=== PATIENT | female | born 1970 | race Caucasian/White ===

== ENCOUNTER 2018-01-17 13:03 | Inpatient (IN) | payer BC ==
[2018-01-17 13:16] LABS: ADD MAN DIFF? NO
[2018-01-17 13:19] LABS: BASOPHIL # 0.1 10^3/ul (0.0-0.1); BASOPHILS % 0.5 % (0.0-2.0); EOSINOPHILS # 0.3 10^3/ul (0.0-0.5); EOSINOPHILS % 2.7 % (0.0-7.0); HEMATOCRIT 47.2 % (37.0-47.0); HEMOGLOBIN 15.9 g/dl (12.0-16.0); LYMPHOCYTES % 37.4 % (15.0-51.0); MEAN CORPUSCULAR HEMOGLOBIN 29.7 pg (29.0-33.0); MEAN CORPUSCULAR HGB CONC 33.7 g/dl (32.0-37.0); MEAN CORPUSCULAR VOLUME 88.2 fl (82.0-101.0); MEAN PLATELET VOLUME 10.3 fl (7.4-10.4); MONOCYTE # 0.4 10^3/ul (0.3-0.9); MONOCYTES % 3.8 % (0.0-11.0); NEUTROPHIL # 5.9 10^3/ul (1.6-7.5); NEUTROPHILS % 55.3 % (39.0-77.0); PLATELET COUNT 314 10^3/UL (140-415); RED BLOOD COUNT 5.35 10^6/ul (4.20-5.40); RED CELL DISTRIBUTION WIDTH 13.2 % (11.5-14.5)
[2018-01-17 13:19] LABS: WHITE BLOOD COUNT 10.6 10^3/ul (4.8-10.8)
[2018-01-17] MEDS: KETOROLAC 15 MG INJ IV (13:28)
[2018-01-17] MEDS: LORAZEPAM 2 MG INJ IV ×3 (13:28→14:04)
[2018-01-17] MEDS: SOD CHLORIDE 0.9% 1,000 ML IV (13:28)
[2018-01-17 13:38] LABS: ALANINE AMINOTRANSFERASE 48 IU/L (13-69); ALBUMIN 4.8 g/dl (3.3-4.9); ALBUMIN/GLOBULIN RATIO 1.23; ALKALINE PHOSPHATASE 124 IU/L (42-121); ANION GAP 14 (8-16); ASPARTATE AMINO TRANSFERASE 33 IU/L (15-46); BILIRUBIN,INDIRECT 0.4 mg/dl (0-1.1); BILIRUBIN,TOTAL 0.4 mg/dl (0.2-1.3); BLOOD UREA NITROGEN 9 mg/dl (7-20); CALCIUM 9.8 mg/dl (8.4-10.2); CARBON DIOXIDE 24 mmol/L (21-31); CHLORIDE 110 mmol/L (97-110); CREATININE 0.69 mg/dl (0.44-1.00); GLUCOSE 100 mg/dl (70-220); LIPASE 53 U/L (23-300); SODIUM 144 mmol/L (135-144); TOTAL PROTEIN 8.7 g/dl (6.1-8.1)
[2018-01-17] MEDS: ASPIRIN 81 MG TAB PO (13:45)
[2018-01-17] MEDS: ONDANSETRON 4 MG INJ IV ×2 (13:45→18:30)
[2018-01-17 13:49] LABS: TROPONIN-I < 0.010 ng/ml (0.000-0.120)
[2018-01-17] MEDS: IOHEXOL 100 ML (14:14)
[2018-01-17] MEDS: SOD CHLORIDE 0.9% 100 ML (14:15)
[2018-01-17] MEDS: ENALAPRILAT 1.25 MG INJ IV (15:11)
[2018-01-17] MEDS: IBUPROFEN 600 MG TAB PO (16:33)
[2018-01-17] MEDS: hydrALAzine 20 MG INJ IV (16:33)
[2018-01-17] MEDS ORDERED: DOCUSATE SODIUM 100 MG CAP PO (18:00)
[2018-01-17] MEDS ORDERED: ACETAMINOPHEN 325 MG TAB PO (18:00)
[2018-01-17] MEDS ORDERED: ZOLPIDEM 5 MG TAB PO (18:00)
[2018-01-17] MEDS ORDERED: NACL 0.9% 3 ML SYG IV (18:00)
[2018-01-17] MEDS ORDERED: MAGNESIUM HYDROXIDE 30ML CUP PO (18:00)
[2018-01-17] MEDS ORDERED: HYDROCODONE/APAP (5/325) TAB PO (18:00)
[2018-01-17] MEDS: morphine 2 MG INJ IV ×2 (18:26→23:07)
[2018-01-17] MEDS: APIXABAN 5 MG TABLET PO (20:21)
[2018-01-17] MEDS: ATORVASTATIN 10 MG TAB PO (20:21)
[2018-01-17] MEDS: TOPIRAMATE 25 MG TAB PO (20:24)
[2018-01-17] MEDS: GEMFIBROZIL 600 MG TAB PO (20:24)
[2018-01-17] MEDS: AMITRIPTYLINE 50 MG TAB PO (20:24)
[2018-01-17] MEDS: METOPROLOL 50 MG TAB PO (20:24)
[2018-01-17] MEDS: GABAPENTIN 400 MG CAP PO (20:25)
[2018-01-17] MEDS: traZODone 50 MG TAB PO (20:25)
[2018-01-17] MEDS: ACCU-CHEK XX (21:31)
[2018-01-17] MEDS: CARISOPRODOL 350 MG TAB PO (21:34)
[2018-01-17] MEDS: NITROGLYCERIN (SL) 0.4 MG TAB SL ×2 (23:46→23:59)
[2018-01-18] MEDS: ONDANSETRON 4 MG INJ IV (01:05)
[2018-01-18] MEDS: morphine 2 MG INJ IV (01:05)
[2018-01-18 01:47] LABS: ADD UMIC YES; UR ASCORBIC ACID NEGATIVE (NEGATIVE); UR BILIRUBIN (Dip) NEGATIVE (NEGATIVE); UR BLOOD (Dip) NEGATIVE (NEGATIVE); UR CLARITY SLIGHTLY CLOUDY (CLEAR); UR COLOR YELLOW (YELLOW); UR GLUCOSE (Dip) NEGATIVE (NEGATIVE); UR KETONES (Dip) NEGATIVE (NEGATIVE); UR LEUKOCYTE ESTERASE (Dip) 2+ Leu/ul (NEGATIVE); UR MUCUS MODERATE /HPF (NONE SEEN); UR NITRITE (Dip) NEGATIVE (NEGATIVE); UR RBC 2 /HPF (0-5); UR SPECIFIC GRAVITY (Dip) 1.049 (1.003-1.030); UR SQUAMOUS EPITHELIAL CELL MODERATE /HPF (FEW); UR TOTAL PROTEIN (Dip) 1+ mg/dl (NEGATIVE); UR UROBILINOGEN (Dip) 1+ mg/dL (NEGATIVE); UR WBC 29 /HPF (0-5)
[2018-01-18 01:53] LABS: TROPONIN-I < 0.010 ng/ml (0.000-0.120)
[2018-01-18] MEDS ORDERED: morphine 2 MG INJ IV (02:00)
[2018-01-18] MEDS: SUMATRIPTAN 50 MG TAB PO (06:02)
[2018-01-18] MEDS: ACCU-CHEK XX (07:30)
[2018-01-18 07:42] LABS: ADD MAN DIFF? NO
[2018-01-18 07:48] LABS: BASOPHIL # 0.1 10^3/ul (0.0-0.1); BASOPHILS % 0.6 % (0.0-2.0); EOSINOPHILS # 0.3 10^3/ul (0.0-0.5); EOSINOPHILS % 3.6 % (0.0-7.0); HEMATOCRIT 40.7 % (37.0-47.0); HEMOGLOBIN 13.1 g/dl (12.0-16.0); LYMPHOCYTES % 35.5 % (15.0-51.0); MEAN CORPUSCULAR HEMOGLOBIN 29.2 pg (29.0-33.0); MEAN CORPUSCULAR HGB CONC 32.2 g/dl (32.0-37.0); MEAN CORPUSCULAR VOLUME 90.8 fl (82.0-101.0); MEAN PLATELET VOLUME 10.5 fl (7.4-10.4); MONOCYTE # 0.5 10^3/ul (0.3-0.9); MONOCYTES % 5.5 % (0.0-11.0); NEUTROPHIL # 4.7 10^3/ul (1.6-7.5); NEUTROPHILS % 54.6 % (39.0-77.0); PLATELET COUNT 237 10^3/UL (140-415); RED BLOOD COUNT 4.48 10^6/ul (4.20-5.40); RED CELL DISTRIBUTION WIDTH 13.7 % (11.5-14.5)
[2018-01-18 07:48] LABS: WHITE BLOOD COUNT 8.6 10^3/ul (4.8-10.8)
[2018-01-18 07:59] LABS: HEMOGLOBIN A1C 6.2 % (0-5.9)
[2018-01-18 08:11] LABS: ANION GAP 13 (8-16); BLOOD UREA NITROGEN 13 mg/dl (7-20); CARBON DIOXIDE 28 mmol/L (21-31); CHLORIDE 106 mmol/L (97-110); CREATININE 0.89 mg/dl (0.44-1.00); GLUCOSE 87 mg/dl (70-220); MAGNESIUM 2.1 mg/dl (1.7-2.5); POTASSIUM 4.3 mmol/L (3.5-5.1); SODIUM 143 mmol/L (135-144)
[2018-01-18 08:19] LABS: TROPONIN-I < 0.010 ng/ml (0.000-0.120)
[2018-01-18 08:29] LABS: PHOSPHORUS 5.9 mg/dl (2.5-4.9)
[2018-01-18] MEDS: APIXABAN 5 MG TABLET PO (08:49)
[2018-01-18] MEDS: CARISOPRODOL 350 MG TAB PO (08:49)
[2018-01-18] MEDS: traZODone 50 MG TAB PO (08:49)
[2018-01-18] MEDS: GABAPENTIN 400 MG CAP PO (08:49)
[2018-01-18] MEDS: ESCITALOPRAM 10 MG TAB PO (08:49)
[2018-01-18] MEDS: BUPROPION (XL) 150 MG TAB PO (08:49)
[2018-01-18] MEDS: GEMFIBROZIL 600 MG TAB PO (08:50)
[2018-01-18] MEDS: TOPIRAMATE 25 MG TAB PO (08:50)
[2018-01-18] MEDS: AMLODIPINE 10 MG TAB PO (08:54)
[2018-01-18] MEDS ORDERED: ENOXAPARIN 40 MG/0.4 ML SYG SC (09:00)
[2018-01-18] MEDS: GLIMEPIRIDE 2 MG TAB PO (09:51)
[2018-01-18] MEDS: METOPROLOL 50 MG TAB PO (09:52)
[2018-01-20] MEDS ORDERED: NON-FORMULARY/PATIENT OWN MED (Ergocalciferol (Vitamin D2) (Vitamin D2) 50,000 UNIT) XX (09:00)
== END 2018-01-18 13:15 | disposition home or self-care (01) | DRG 313 ==
LOC: E/R 13:03 → MS4 14:29
DX: R07.89 Other chest pain (principal); E66.01 Morbid (severe) obesity due to excess calories; R10.13 Epigastric pain; F41.9 Anxiety disorder, unspecified; F32.9 Major depressive disorder, single episode, unspecified; I10 Essential (primary) hypertension; E78.5 Hyperlipidemia, unspecified; E03.9 Hypothyroidism, unspecified; G43.909 Migraine, unspecified, not intractable, without status migrainosus; Z68.39 Body mass index [BMI] 39.0-39.9, adult; Z79.01 Long term (current) use of anticoagulants; Z79.02 Long term (current) use of antithrombotics/antiplatelets; Z86.711 Personal history of pulmonary embolism
CPT/HCPCS: 36415; 71275; 80048; 80053; 81001; 82962; 83036; 83690; 83735; 84100; 84484; 85025; 93005; 96374; 96375; 99285-25